=== PATIENT | female | born 1975 | race African-American/Black ===

== ENCOUNTER 2016-10-24 18:00 | Inpatient (IN) | payer OTHER ==
--- NOTE | ~2016-10-24 | DS ---
Unit #: [id number] #: [id number] Patient: JEANCARLOS CHAU [id number] [facility] [address] [place] [address] [id number] I MR#: [id number] NAME: JEANCARLOS CHAU ROOM: P264 Age: 41 Sex: F Admission Date: 10/24/2016 : 1975 Discharge Date: 10/29/2016 Attending Physician: Aleksander Augustin M.D. Primary Care Physician: Primary Care Physician No DISCHARGE SUMMARY IDENTIFYING DATA Ms. Chau is a 41-year-old female, who is a resident of [place], [place] and was self-referred to the hospital on a voluntary basis. DISCHARGE DIAGNOSES Psychiatric: Major depressive disorder, recurrent, moderate, without psychotic features; generalized anxiety disorder. Medical: None. Stressors: Moderate psychosocial stressors. HISTORY OF PRESENT ILLNESS Please see initial psychiatric evaluation for details. PAST PSYCHIATRIC HISTORY Please see initial psychiatric evaluation for details. PAST MEDICAL HISTORY Please see initial psychiatric evaluation for details. HOSPITAL COURSE The patient was [facility] and was oriented to the hospital environment. Routine p.r.n. medications were initiated, and she was started back on her home medications and was closely monitored. She was taking the medications regularly and was tolerating them fairly well and was able to show a decent and therapeutic response and as such, it was decided that she will be discharged home and will continue treatment on an outpatient basis. DISCHARGE MEDICATIONS Effexor XR 75 mg a day for depression and trazodone 100 mg at bedtime for sleep. DISCHARGE CONDITION Stable. PROGNOSIS Fair. Dictated by... Aleksander Augustin M.D. IAA/modl Unit #: [id number] #: [id number] Patient: JEANCARLOS CHAU TD: 10/29/2016 08:16 JOB #: [id number] DISCHARGE SUMMARY Page 1 of 1 X Aleksander Augustin MD X DISCHARGE SUMMARY
--- NOTE | ~2016-10-24 | PA ---
Unit #: [id number] #: [id number] Patient: JEANCARLOS CHAU [id number] [facility] [address] [place] [address] [id number] MR#: [id number] NAME: JEANCARLOS CHAU ROOM: P264 Age: 41 Sex: F Admission Date: 10/24/2016 : 1975 Date of Assessment: 10/25/2016 Attending Physician: Aleksander Augustin M.D. Admitting Physician: Aleksander Augustin M.D. Primary Care Physician: Primary Care Physician No PSYCHIATRIC ASSESSMENT DATE OF SERVICE 10/25/2016. IDENTIFYING DATA Ms. Chau is a 41-year-old female, who is a resident of [place], [place], and was self-referred to the hospital on a voluntary basis. CHIEF COMPLAINT "Depression and suicidal thoughts." HISTORY OF PRESENT ILLNESS Ms. Chau is a 41-year-old female, who reports that she has been homeless since 10/10/2016 and had stable employment at [employer], but she took leave to take care of her father and this put a financial strain on her and she was not able to pay her rent and also has been taking care of her mother, her mother is homeless too, so the patient is feeling really guilty, and reports that she got written up at work for harassing a co-worker and is stressing out about possibly losing job, and she reports that she is losing everything and she has lost everything and she has nothing going on and is homeless and has financial stressors and has lost her car and now reports feelings of hopelessness and helplessness and suicidal ideations with intent and plan and was seen to be a danger to self and others and as such, a recommendation for inpatient level of care for safety and stabilization was made. The patient stated that she is feeling like she does not want to be here and that she thinks about suicide all the time. The patient has thoughts of taking pills to kill herself, and when asked if she would attempt suicide if she left the hospital, she stated that she really does not know and that is why she came here. SUBSTANCE ABUSE HISTORY The patient denies any alcohol or drug abuse. PAST PSYCHIATRIC HISTORY The patient has had a history of outpatient psychiatric treatment in the past, and review of the medical records indicate that currently she is not active in any treatment program, is not seeing a psychiatrist, and is not taking any psychotropic medications. PAST MEDICAL HISTORY No acute or chronic medical illnesses. Unit #: [id number] #: [id number] Patient: JEANCARLOS CHAU ALLERGIES No known medication allergies. PERSONAL AND SOCIAL HISTORY A 41-year-old female, who reports that she is single and employed and lives at home with her mother, but then also states that she is homeless and has poor social support system. MENTAL STATUS EXAMINATION Middle-aged female, who was casually dressed with fair personal hygiene, appears to be in no acute distress or discomfort. She was awake and alert on interaction with intact orientation to time, place, and person. Her mood was anxious and depressed with a congruent affect. Her speech was slow and restricted in content. Her thought processes were disorganized with some looseness of associations and suicidal ideations. Her insight and judgment remain significantly impaired. DIAGNOSTIC IMPRESSION Psychiatric: Major depressive disorder, recurrent, moderate, without psychotic features and generalized anxiety disorder. Medical: None. Stressors: Moderate psychosocial stressors. TREATMENT PLAN 1. The patient has presented with a history of mood disorder and has been decompensating and will need inpatient hospitalization for safety and stabilization. We will start her back on her home medications. We will adjust the medications and monitor response. 2. Supportive therapy was provided to the patient. 3. Safe, structured, and nourishing environment will be provided. ESTIMATED LENGTH OF STAY 5 to 7 days. ABILITY TO HELP SELF Limited. WILLINGNESS TO HELP SELF The patient appears to be willing to help self. STRENGTHS 1. Communicative. 2. Cooperative. PROBLEMS 1. Chronic dysphoric symptoms. 2. Poor social support system. DISCHARGE CRITERIA This will be contingent upon the patient's ability to show resolution of her depression and anxiety and her ability to stay safe to herself, particularly after discharge from the hospital. Dictated by... Melissa Rosario/arvin Unit #: [id number] #: [id number] Patient: JEANCARLOS CHAU TD: 10/25/2016 13:08 JOB #: [id number] PSYCHIATRIC ASSESSMENT Page 1 of 1 X Aleksander Augustin MD PSYCHIATRIC ASSESSMENT
--- NOTE | ~2016-10-24 | HP ---
Unit #: [id number] #: [id number] Patient: JEANCARLOS WHITE [id number] [place] [address] [id number] I MR#: [id number] NAME: JEANCARLOS WHITE ROOM: P264 Age: 41 Sex: F Admission Date: 10/24/2016 : 1975 Attending Physician: Aleksander Augustin M.D. Admitting Physician: Aleksander Augustin M.D. Primary Care Physician: Primary Care Physician No HISTORY AND PHYSICAL HISTORY OF PRESENT ILLNESS Jeancarlos is a 41 year old admitted to [address] [place] [address] with depression verbalizing wanting to hurt herself. PAST MEDICAL HISTORY Nothing significant. PAST SURGICAL HISTORY 1. Hysterectomy. 2. x1. ALLERGIES No known drug allergies. SOCIAL HISTORY She does not smoke. Drinks alcohol rarely. Admits to using marijuana frequently. FAMILY HISTORY Medically noncontributory. REVIEW OF SYSTEMS CONSTITUTIONAL: No fever or chills. HEENT: Denies any sore throat, ear pain or runny nose. CARDIOVASCULAR: Denies chest pain, irregular heart rhythm or palpitations. CHEST: Denies shortness of breath or cough. No hemoptysis. GASTROINTESTINAL: Denies nausea, vomiting, diarrhea or chronic constipation. ENDOCRINE: Denies history of increased thirst or urination. No recent significant weight loss or gain. GENITOURINARY: Denies dysuria, frequency, or hematuria. SKIN: Denies any rashes. HEMATOLOGIC: Denies history of increased bleeding or bruising. MUSCULOSKELETAL: Denies any hot, swollen joints. No generalized muscle pain. NEUROLOGIC: Denies problems with vision or speech. No frequent, severe headaches. No numbness, tingling or weakness in any extremities. Denies loss of bladder or bowel control. CURRENT MEDICATIONS 1. Effexor XR 75 mg q.a.m. 2. Seroquel 100 mg q.h.s. 3. Milk of Magnesia p.r.n. Unit #: [id number] #: [id number] Patient: JEANCARLOS WHITE 4. Maalox p.r.n. 5. Tylenol p.r.n. 6. Desyrel 100 mg q.h.s. PHYSICAL EXAMINATION GENERAL: Alert, well nourished. No apparent distress. VITAL SIGNS: Blood pressure 160/100, heart rate 80, respirations 16, and temperature 98.6. WEIGHT: 160. HEIGHT: 5 feet 0 inches. SKIN: Warm and dry without rash or lesion. HEENT: Normocephalic. TMs not viewed. Oral and nasal passages clear. Conjunctivae clear. PERRLA. EOMs intact. NECK: Supple without lymphadenopathy or thyromegaly. HEART: Regular rate and rhythm without murmur. LUNGS: Clear. ABDOMEN: Soft, nontender. : Not done. EXTREMITIES: No evidence of cyanosis, clubbing or edema. Moves all without focal deficit. NEUROLOGICAL: Grossly within normal limits. Cranial Nerves: II: Visual aldana are intact. III, IV AND : Extraocular movements are intact. Pupils are equal, round and reactive to light. V: Facial sensation is grossly normal. VII: Facial movements and expression are normal. VIII: Auditory acuity grossly intact. IX, X: Uvula is midline. Phonation is normal. XI: Patient shrugs shoulders and turns head normally. XII: Tongue protrudes in the midline. Sensory and Motor Function: Sensory and motor sensation is grossly normal. Motor: moves all extremities well. Coordination: Gait is normal. Deep Tendon Reflexes: Intact. IMPRESSION 1. Psychiatric admission. 2. High blood pressure on admission although she gives no prior history. RECOMMENDATIONS PSYCHIATRIC: Per psychiatrist. MEDICAL: 1. I see no contraindication to participate in this facility's activities. 2. Monitor blood pressure q. shift. If remains high, she knows she needs to follow up with her PCP. MEDICAL PROGNOSIS Good. MEDICAL CONDITION Stable. Dictated by... Neelam Flores P.A.-C. for Jeb Callejas M.D. Unit #: [id number] #: [id number] Patient: JEANCARLOS WHITEBRANDO/bzg TD: 10/25/2016 15:07 JOB #: [id number] HISTORY AND PHYSICAL Page 1 of 1 X Neelam Flores HISTORY AND PHYSICAL
--- NOTE | ~2016-10-24 | TN ---
Unit #: [id number] #: [id number] Patient: [facility]LOS CHAU [id number] [facility] [address] [place] [address] [id number] I MR#: [id number] NAME: JEANCARLOS CHAU ROOM: P264 Age: 41 Sex: F Admission Date: 10/24/2016 : 1975 Discharge Date: 10/29/2016 Attending Physician: Aleksander Augustin M.D. Primary Care Physician: Primary Care Physician No LOC TRANSFER NOTE DATE OF SERVICE 10/30/2016. HISTORY OF PRESENT ILLNESS Ms. Chau is a 41-year-old female, who was stepped down to the outpatient treatment program from the inpatient psychiatric unit, where she was hospitalized under my care from 10/24/2016 to 10/29/2016 and was brought to the hospital stating that she has been going through some increasing depression and anxiety and has been unemployed and that her father put her out and she has been having some financial strains and was feeling increasingly depressed and having suicidal thoughts and as such, was hospitalized and was kept on the suicide watch and precautions and was started on Effexor and was stabilized and stepped down to the outpatient treatment program. On evaluation by me, the patient appears to be doing much better and reports improvement in her depression and anxiety, but denies any suicidal ideations, intent, or plan. SUBSTANCE ABUSE HISTORY The patient reports history of cannabis dependence and has been using cannabis on a daily basis. PAST PSYCHIATRIC HISTORY The patient has had a history of inpatient psychiatric hospitalization [facility] and is currently on Effexor XR 75 mg at bedtime. PAST MEDICAL HISTORY No acute or chronic medical illnesses. ALLERGIES No known medication allergies. PERSONAL AND SOCIAL HISTORY A 41-year-old female, who reports that she lives at home with her mother and has fairly decent social support system. MENTAL STATUS EXAMINATION Middle-aged female, who was casually dressed with fair personal hygiene. She was awake and alert on interaction with intact orientation. Her mood was anxious with a congruent affect. She denies any suicidal or homicidal ideations and also denies any auditory or visual hallucinations. Her insight and judgment remain slightly impaired. Unit #: [id number] #: [id number] Patient: JEANCARLOS CHAU DIAGNOSTIC IMPRESSION Psychiatric: Major depressive disorder, recurrent, moderate, without psychotic features. Medical: None. Stressors: Moderate psychosocial stressors. TREATMENT PLAN 1. The patient has presented with a history of mood disorder and has been decompensating. We will recommend enrolling her into the outpatient program and maintaining her on her current medications and we will monitor her response and make further adjustments as needed. 2. Supportive therapy was provided to the patient. ESTIMATED LENGTH OF STAY 14 to 21 days. ABILITY TO HELP SELF Limited. WILLINGNESS TO HELP SELF The patient appears to be willing to help self. STRENGTHS 1. Communicative. 2. Cooperative. PROBLEMS 1. Chronic dysphoric symptoms. 2. Poor social support system. DISCHARGE CRITERIA This will be contingent upon the patient's ability to show resolution of her depression and anxiety and her ability to stay safe to herself, particularly after discharge from the program. Dictated by... Aleksander Augustin M.D. AMADOR/arvin TD: 10/31/2016 15:03 JOB #: [id number] LOC TRANSFER NOTE Page 1 of 1 X Aleksander Augustin MD X LOC TRANSFER NOTE
--- NOTE | ~2016-10-24 | PN ---
Unit #: [id number] #: [id number] Patient: JEANCARLOS WHITE [id number] [facility] [address] [place] [address] [id number] I MR#: [id number] NAME: JEANCARLOS WHITE ROOM: [facility] Age: 41 Sex: F Admission Date: 10/24/2016 : 1975 Attending Physician: Aleksander Augustin M.D. Admitting Physician: Aleksander Augustin M.D. Primary Care Physician: Primary Care Physician Geena HIGHTOWER NOTES DATE October 28, 2016 DISCUSSION Ms. White is a 41-year-old female, who was seen today and chart was reviewed and the case was discussed with the staff. She has been anxious, withdrawn, depressed, and rather seclusive to herself. Meanwhile, she has been cooperative with the treatment recommendations, and she has been taking the medications and tolerating them fairly well with no reported side effects. MENTAL STATUS EXAMINATION Middle-aged female, who was casually dressed with fair personal hygiene and appears to be in no acute distress or discomfort. The patient was awake and alert on interaction with intact orientation. Her mood was anxious with a congruent affect. The patient denies any suicidal or homicidal ideations. Her insight and judgment remain slightly impaired. TREATMENT PLAN 1. We will continue her on her current medications and treatment protocol, and will monitor her response to the medications, and make further adjustments as needed. 2. We will continue to followup. Dictated by... Melissa Rosario/tim TD: 10/29/2016 06:57 JOB #: [id number] Unit #: [id number] #: [id number] Patient: JEANCARLOS WHITE PROGRESS NOTES Page 1 of 1 X Aleksander Augustin MD PROGRESS NOTE
--- NOTE | ~2016-10-24 | PN ---
Unit #: [id number] #: [id number] Patient: JEANCARLOS WHITE [id number] [facility] [address] [place] [address] [id number] MR#: [id number] NAME: JEANCARLOS WHITE ROOM: [facility] Age: 41 Sex: F Admission Date: 10/24/2016 : 1975 Attending Physician: Aleksander Augustin M.D. Admitting Physician: Aleksander Augustin M.D. Primary Care Physician: Primary Care Physician Geena HIGHTOWER NOTES DATE 10/26/2016 DISCUSSION Ms. White is a 41-year-old female who was seen today and chart was reviewed and case was discussed with the staff. She has been anxious, withdrawn and rather seclusive to herself. Meanwhile, she has been cooperative with treatment recommendations as she has been taking the medications and tolerating them fairly well. MENTAL STATUS EXAMINATION Middle-aged female who was casually dressed with fair personal hygiene, appears to be in no acute distress or discomfort. She was awake and alert with impaired attention and concentration. Her mood is was anxious and depressed with congruent affect. She reports having suicidal ideation and denies any homicidal ideation. Her insight and judgement remains slightly impaired. TREATMENT PLAN 1. We will continue her on her current medications and treatment protocol. We will monitor her response to the medication and make further adjustments as needed. 2. We will continue to follow up. Dictated by... Melissa Rosario/nicky TD: 10/28/2016 04:50 JOB #: [id number] Unit #: [id number] #: [id number] Patient: JEANCARLOS WHITE PROGRESS NOTES Page 1 of 1 X Aleksander Augustin MD PROGRESS NOTE
--- NOTE | ~2016-10-24 | PN ---
Unit #: [id number] #: [id number] Patient: JEANCARLOS WHITE [id number] [facility] [address] [place] [address] [id number] I MR#: [id number] NAME: JEANCARLOS WHITE ROOM: [facility] Age: 41 Sex: F Admission Date: 10/24/2016 : 1975 Attending Physician: Aleksander Augustin M.D. Admitting Physician: Aleksander Augustin M.D. Primary Care Physician: Primary Care Physician Geena HIGHTOWER NOTES DATE 10/27/2016 DISCUSSION Ms. White is a 41-year-old female who was seen today and chart was reviewed and case was discussed with the staff. She has been anxious, withdrawn and rather seclusive to herself. Meanwhile, she has been cooperative with treatment recommendations as she has been taking the medications and tolerating them fairly well. MENTAL STATUS EXAMINATION Middle-aged female who was casually dressed with fair personal hygiene, appears to be in no acute distress or discomfort. She was awake and alert on interaction with intact orientation. Her mood was anxious with congruent affect She denies any suicidal or homicidal ideations. Also, denies any auditory or visual hallucinations. Her insight and judgement remains slightly impaired. TREATMENT PLAN 1. We will continue her on her current medications and treatment protocol. We will monitor her response and make further adjustments as needed. 2. We will continue to follow up. Dictated by... Melissa Rosario/nicky TD: 10/29/2016 02:43 JOB #: [id number] Unit #: [id number] #: [id number] Patient: JEANCARLOS WHITE PROGRESS NOTES Page 1 of 1 X Aleksander Augustin MD PROGRESS NOTE
[2016-10-25 09:32] LABS: BASOPHIL% 0.3 % (0-2.5); EOSINOPHIL# 0.1 X10e3 (0-0.7); EOSINOPHIL% 1.6 % (0.0-7.0); HEMATOCRIT 36.6 % (35.0-45.0); HEMOGLOBIN 12.1 gm/dL (12.0-16.0); LYMPHOCYTE# 2.1 X10e3 (1.0-3.5); LYMPHOCYTE% 29.8 % (17.0-45.0); MEAN CELL VOLUME 85.1 FL (83-96); MEAN CORPUSCULAR HEMOGLOBIN 28.1 PG (28-34); MEAN CORPUSCULAR HGB CONC 33.1 g/dL (30-36); MEAN PLATELET VOLUME 8.9 FL (6.5-11.5); MONOCYTE# 0.6 X10e3 (0-1.0); MONOCYTE% 9.2 % (3.0-12.0); NEUTROPHIL# 4.1 X10e3 (1.5-7.1); NEUTROPHIL% 59.1 % (40-75); PLATELET COUNT 298 X10e3 (140-420); RED CELL DISTRIBUTION WIDTH 13.5 % (11.0-15.5); WHITE BLOOD COUNT 6.9 X10e3 (4.0-10.5)
[2016-10-25 09:35] LABS: URINE APPEARANCE CLEAR; URINE BILIRUBIN NEG (NEG); URINE BLOOD TRACE (NEG); URINE COLOR YELLOW; URINE GLUCOSE NEG (NEG); URINE KETONE 2+ (NEG); URINE LEUKOCYTE ESTERASE 2+ (NEG); URINE NITRATE POS (NEG); URINE PH 5.5 (5-8); URINE PROTEIN NEG (NEG); URINE SPECIFIC GRAVITY 1.013 (1.003-1.035)
[2016-10-25 09:38] LABS: URBCS1 AUWI 0-2 /[HPF] (0-2); URINE BACTERIA AUWI 4+ (NEGATIVE); URINE SQUAMOUS EPITHELIAL CELL OCC /[HPF]; UWBCS1 AUWI 25-50 (0-5)
[2016-10-25 09:48] LABS: DIFF IND NO
[2016-10-25 09:54] LABS: ALBUMIN SERUM 4.1 g/dL (3.5-5.0); BILIRUBIN,TOTAL 0.7 mg/dL (0.2-2.0); BUN/CREATININE RATIO 8.75; CALCIUM SERUM 8.8 mg/dL (8.4-10.2); CREATININE SERUM 0.8 mg/dL (0.6-1.4); GLOM FILT RATE Estimated 105.5 mL/min (>60); POTASSIUM 3.3 mmol/L (3.5-5.1); PROTEIN TOTAL SERUM 7.5 g/dL (6.0-8.3)
[2016-10-25 10:18] LABS: AMPHETAMINE NEG (NEG); BARBITURATES NEG (NEG); BENZODIAZEPINES NEG (NEG); COCAINE NEG (NEG); MARIJUANA POS (NEG); OPIATES NEG (NEG); TRICYCLIC ANTIDEPRESSANTS NEG (NEG); U METHADONE NEG (NEG)
[2016-10-25 10:45] LABS: THYROID STIMULATING HORMONE 1.18 uIU/ml (0.34-5.60)
[2016-10-25 10:52] LABS: FREE THYROXIN (T4) 0.8 ng/dL (0.58-1.64)
== END 2016-10-29 12:00 | disposition home or self-care (01) | DRG 885 ==
LOC: P2L 21:07
PROVIDERS: Psychiatry & Neurology Psychiatry
DX: F33.1 Major depressive disorder, recurrent, moderate (principal); F41.1 Generalized anxiety disorder; Z90.710 Acquired absence of both cervix and uterus; R03.0 Elevated blood-pressure reading, without diagnosis of hypertension
CPT/HCPCS: 80053; 80307; 81003; 84439; 84443; 84703; 85025